=== PATIENT | female | born 1980 | race Caucasian/White ===

== ENCOUNTER → 2024-03-13 | Outpatient (CLI) | payer OTHER, SELFPAY ==
[2024-03-13 12:17] LABS: Absolute Lymphocyte Count 1.47 X10^3/uL (0.83-4.51); Absolute Neutrophil Count 8.6 X10^3/uL (2.0-7.7); Basophil# 0.04 X10^3/uL; Basophil% 0.4 % (0-1); Eosinophil# 0.13 X10^3/uL; Eosinophils% 1.2 % (0-5); Hematocrit 37.2 % (37-47); Hemoglobin 12.1 g/dL (12.0-15.0); Lymphocyte # 1.47 X10^3/ul (0.83-4.51); Lymphocyte % 13.4 % (19-41); Mean Corp Hgb Conc 32.5 g/dL (32-36); Mean Corpuscular Hgb 28.6 pg (27.0-32.0); Mean Corpuscular Volume 87.9 fL (81-99); Mean Platelet Vol. 10.8 fl (6.2-12.0); Monocyte# 0.66 X10^3/uL; NRBC Flagged by Analyzer 0 % (0-5); Neutrophil % 78.5 % (47-70); Platelet Count 338 K/mm3 (150-450); RBC Distribution Width SD 41.3 fl (35.1-43.9); Red Blood Count 4.23 M/mm3 (4.2-5.4)
[2024-03-13 13:21] LABS: ALB/GLOB Ratio 0.8 RATIO (0.9-2.4); AST(SGOT) 12 U/L (15-37); Alanine Aminotransfer ALT/SGPT 20 U/L (13-56); Albumin, Serum 3.1 g/dL (3.2-5.0); Alkaline Phosphatase 58 U/L (45-117); Anion Gap 7 (5-15); BUN 13 mg/dL (7-18); BUN/Creat Ratio 18.7 RATIO (10-20); Calcium,Total 9.3 mg/dL (8.5-10.1); Chloride 106 mmol/L (98-107); Creatinine, Serum 0.69 mg/dL (0.55-1.02); EST Glomerular Filtration Rate 98 mL/min (>60); Est Glom Filt Rate - Afr Amer 119 mL/min (>60); Globulin 4.1 g/dL (2.2-4.2); Glucose 91 mg/dL (74-106); Potassium 4.6 mmol/L (3.5-5.1); Protein, Total 7.2 g/dL (6.4-8.2); Sodium Level 137 mmol/L (136-145)
[2024-03-13 18:39] LABS: Vitamin D,25 Hydroxy 13.8 ng/mL
== END | disposition home or self-care (01) ==
LOC: MFPLAB 10:04
PROVIDERS: PCP Family Medicine; Referring Provider Family Medicine; Visit Provider Family Medicine
DX: R53.83 Other fatigue (principal)
CPT/HCPCS: 36415; 80053; 82306; 84443; 85025

== ENCOUNTER → 2024-06-23 | Outpatient (CLI) | payer OTHER, SELFPAY ==
--- NOTE | 2024-06-23 13:30 | RAD_ITS ---
PROCEDURE: KNEE 4 OR MORE VIEWS 06/23/2024 REASON FOR EXAM: LEFT KNEE INJURY TECHNIQUE: 4 view(s) of the left knee COMPARISON: None available FINDINGS: No fracture or dislocation. Moderate medial compartment joint space narrowing. Mild degenerative changes with mild spurring, osteophyte formation. Small joint effusion. RAD/Knee 4 or More Views IMPRESSION: No fracture or dislocation. Moderate medial compartment joint space narrowing. If further clinical concern for possible internal joint derangement, may consider follow-up with MRI as warranted. Small joint effusion. Mild osteoarthrosis. Reading Location: [id number]
== END | disposition home or self-care (01) ==
PROVIDERS: PCP Family Medicine; Referring Provider Family Medicine; Visit Provider Family Medicine
DX: M25.562 Pain in left knee (principal)
CPT/HCPCS: 73564

== ENCOUNTER → 2024-08-07 | Outpatient (CLI) | payer OTHER, SELFPAY ==
--- NOTE | 2024-08-07 12:11 | MRI_ITS ---
PROCEDURE: LOWER EXT JOINT ONLY (ROUTINE) 08/07/2024 REASON FOR EXAM: PAIN TECHNIQUE: MRI of the left knee. T1, T2, PD, multiplanar and multisequence images were obtained without IV contrast administration. COMPARISON: COMPARISON : June 23, 2024 x-ray FINDINGS: Bone Marrow: There is mild subcortical edema in the medial femoral condyle and medial tibial plateau secondary to osteoarthritis, with prominent marginal osteophytes. There is severe chondromalacia in the medial compartment. There is moderate chondromalacia at the patellofemoral articulation. There is 25% lateral patellar subluxation. Collateral ligaments: There is edema and attenuation throughout the medial collateral ligament with thickening of the upper portion, without tear. The lateral collateral ligament complex appears intact. Cruciate ligaments: The anterior and posterior cruciate ligaments appear intact. Extensor mechanism: The distal quadriceps and patellar tendons are intact. Meniscus: The lateral meniscus appears intact. There is a complex tear of the posterior horn and body of the medial meniscus with a horizontal component in the posterior horn which extends to the tibial surface, with extrusion of the body. Soft Tissues: There is a 5.8 by 2.8 by 2.0 cm Harper's cyst. There is a moderate joint effusion. MRI/Lower Ext Joint Only (Routine) IMPRESSION: There is mild subcortical edema in the medial femoral condyle and medial tibial plateau secondary to osteoarthritis, with prominent marginal osteophytes. There is severe chondromalacia in the medial compartment. There is moderate chondromalacia at the patellofemoral articulation. There is 25% lateral patellar subluxation.There is edema and attenuation throug hout the medial collateral ligament with thickening of the upper portion, without tear. There is a complex tear of the posterior horn and body of the medial meniscus w ith a horizontal component in the posterior horn which extends to the tibial surface, with extrusion of the body. There is a 5.8 by 2.8 by 2.0 cm Harper's cyst. There is a moderate joint effusion. Reading [facility]
== END | disposition home or self-care (01) ==
LOC: MRI 15:16
PROVIDERS: PCP Family Medicine; Referring Provider Orthopaedic Surgery; Visit Provider Orthopaedic Surgery
DX: M25.562 Pain in left knee (principal); M17.12 Unilateral primary osteoarthritis, left knee
CPT/HCPCS: 73721

== ENCOUNTER 2024-10-03 05:37 | Day surgery (SDC) | payer OTHER, SELFPAY ==
[2024-10-03] VITALS (9 sets, daily range): BP systolic 124–150; BP diastolic 86–96; PULSE 67–85; RESP 16–18; TEMP 36–36.4; O2SAT 98–100; BMI 40.4
[2024-10-03 06:27] LABS: Internal QC Validated? YES +Cl - CLEAR BKGD; Pregnancy, Urine Negative Negative; Record Kit Lot#,Urine Preg 0000947241
[2024-10-03] MEDS: Lactated Ringers 1,000 ML 15 ML IV (06:38)
--- NOTE | 2024-10-03 07:05 | PCM.PRE.AN2 ---
ASA Classification* ASA Classification ASA Classification: 3 Assessment & Plan Anesthesia* Anesthesia Assessment Anesthesia Assessment: Discussed sedation and/or anesthesia options, risks, benefits, and alternatives with patient/parents/legal guardian/POA. Questions invited. The patient/parents/legal guardian/POA seems to understand and agrees to proceed with anesthesia plan. Reviewed the physical assessment, medical history, allergy history and patient home medications list prior to surgery/procedure/anesthetic and documented any changes. Performed airway and anesthesia risk assessments. Anesthesia Type Anesthesia Type: General History Source History Obtained from:: Patient and Chart Anesthesia Focused Assessment* Temperature: 97.1 F Pulse Rate: 72 Blood Pressure: 148/94 Respiratory Rate: 16 Pulse Ox: 100 Oxygen Delivery Method: Room Air Airway Assessment Mouth opens: >3 cm Mallampati Score: I Teeth Condition: Caps/Crowns (Patient has a crown left upper molar. It is tight.) Neck Range of motion (ROM): Full ROM Labs Anesthesia Preop lab: CBC WBC 11.0 K/mm3 (4.4-11.0) 03/13/24 10:05 03/13/24 RBC 4.23 M/mm3 (4.2-5.4) 03/13/24 10:05 03/13/24 Hgb 12.1 g/dL (12.0-15.0) 03/13/24 10:05 03/13/24 Hct 37.2 % (37-47) 03/13/24 10:05 03/13/24 Plt Count 338 K/mm3 (150-450) 03/13/24 10:05 03/13/24 CHEMISTRY Potassium 4.6 mmol/L (3.5-5.1) 03/13/24 10:05 03/13/24 Sodium 137 mmol/L (136-145) 03/13/24 10:05 03/13/24 BUN 13 mg/dL (7-18) 03/13/24 10:05 03/13/24 Creatinine 0.69 mg/dL (0.55-1.02) 03/13/24 10:05 03/13/24 Glucose 91 mg/dL (74-106) 03/13/24 10:05 03/13/24 TSH 3.680 uIU/mL (0.358-3.740) 03/13/24 10:05 03/13/24 COAG Urine Test Negative Negative 10/03/24 06:13 10/03/24 Pre-Assessment Diagnosis/Proposed Procedure Planned Operative Procedure(s): LEFT KNEE ARTHROSCOPY, PARTIAL MENISCECTOMY Anesthesia History 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 When Was Last Pacemaker Check QUESTION #4 FULL TEXT: You/Your Family Experience fever (hyperthermia) with Anesthesia Last Oral Intake Last Oral intake: Last Oral Intake NPO since 21:00 10/03/24 06:21 Meds taken in AM with sips of water? Meds patient instructed to take am of surgery PONV PONV - underground mining section foreman: PONV - underground mining section foreman Female Yes 09/27/24 13:57 HX of Motion Sickness No 09/27/24 13:57 HX of N/V After Surgery No 09/27/24 13:57 Non-Smoker Yes 09/27/24 13:57 Duration of Surgery greater Yes 09/27/24 13:57 than 60 minutes Number of Risk Factors 3 09/27/24 13:57 PONV Score Moderate Risk 09/27/24 13:57 Height & Weight Height & Weight: Anesthesia: Height & Weight Height 5 ft 9 in 10/03/24 06:21 Weight: 124.284 kg 10/03/24 06:21 Body Mass Index (BMI) 40.4 10/03/24 06:21 Respiratory Assessment Respiratory Assessment - underground mining section foreman: Respiratory Tract Infection Hx - underground mining section foreman Hx Respiratory Tract Infection No 09/27/24 13:57 STOP Sleep Apnea STOP Sleep Apnea - underground mining section foreman: STOP Sleep Apnea - underground mining section foreman Hx Hypertension No 09/27/24 13:57 Hx Sleep Apnea No 09/27/24 13:57 CPAP BIPAP Do you snore loudly (louder No 09/27/24 13:57 than talking or can be heard Do you often feel tired/ No 09/27/24 13:57 fatigued/ sleepy during daytime? Has anyone observed you stop No 09/27/24 13:57 breathing during sleep? STOP Results Negative 09/27/24 13:57 QUESTION #5 FULL TEXT : Do you snore loudly (louder than talking or can be heard through closed doors)? Tobacco Use History Tobacco Use History - underground mining section foreman: Tobacco Use History - underground mining section foreman Tobacco Use Smoking Status Former smoker 09/27/24 13:57 Hx Tobacco Use Yes: 05/2309/27/24 13:57 Years Smoking Packs Smoked per Day Smoking Cessation Date was Yes - quit smoking within 15 09/27/24 13:57 within the last 15 years years Hx Smoking Cessation Date Hx Smoking Cessation Counseling Hematologic Medial History Hematologic Hx - underground mining section foreman: Hematologic Medical Hx - rn documentation specialist Hx of Blood Transfusion No 09/27/24 13:57 Hx of Transfusion in last 3 No 09/27/24 13:57 Months Date of Last Transfusion (if within last 3 months) Ever experience any problems No 09/27/24 13:57 with transfusion(s)? Specify any problems Hx of Preganancy in last 3 No 09/27/24 13:57 Months Nurse Filling Out Transfusion [email or web address] 09/27/24 13:57 & Questions: Date: 09/27/24 09/27/24 13:57 Time: 14:00 09/27/24 13:57 Patient unable to answer at this time (ie. confused, unrespo /Reproduction History /Reproductive History - underground mining section foreman: /Reproductive Hx- underground mining section foreman Hx Now Gestational Age (in weeks): EDC: Hx Hx Para Hx Section SAB Active Medications Active Medications: Current Medications Generic Name Dose Route Start Last Admin Trade Name Freq PRN Reason Stop Dose Admin Cefazolin Sodium 3 gm/ Sodium 115 mls @ 200 mls/hr 10/03/24 07:30 Chloride IV 10/03/24 08:04 INTRAOP ONE Lactated Ringer's 1,000 mls @ 15 mls/hr 10/03/24 06:00 10/03/24 06:38 IV 15 mls/hr .Q48H HUSSEIN Administration PFSH Medical History Depression Anxiety Wears glasses Marijuana use Former smoker Home Medications ?Medication ?Instructions ?Recorded ?Last Taken ?Type bupropion HCl 300 mg 24 hr tablet, 300 mg PO QDAY 06/30/24 10/01/24 History extended release fluoxetine 10 mg capsule 20 mg PO DAILY 06/30/24 10/01/24 History norgestimate-ethinyl estradiol 1 tab PO QHS 06/30/24 10/02/24 History 0.18mg/0.215mg/0.25mg-0.035mg(28)tablet (Tri-Ceci) phentermine 37.5 mg tablet 37.5 mg PO QDAY 06/30/24 10/01/24 History (Adipex-P) topiramate 25 mg tablet 25 mg PO BID 08/09/24 10/01/24 History fluoxetine 40 mg capsule 40 mg PO DAILY 09/27/24 10/01/24 History Allergy/AdvReac Type Severity Reaction Status Date / Time No Known Allergies Allergy Verified 10/03/24 06:19 Surgical History (Updated 10/03/24 @ 07:[address] Kelvin Merritt MD) delivery delivered History of wisdom tooth extraction Social History Smoking Status: Former smoker alcohol intake: current alcohol intake frequency: a few times a week Review of Systems (Anesthesia) ROS Narrative System reviewed and no additional complaints, except as documented.
--- NOTE | 2024-10-03 07:07 | PCM.HP.BLA ---
History and Physical Date of Admission: 10/03/24 [facility] [address] [place] [address] OFFICE VISIT Date of Service: 08/09/24 MR#: [id number] Acct: [id number] Name: JAN MONTENEGRO Rep #: [id number] : 1980 Provider: Dr. Star Lee DO Age/Sex: 44/F Location: [email or web address] Status: Signed Intake Vital Signs 07/01/2507:39 08/08/2509:18 08/10/2507:33 Height 5 ft 9 in 5 ft 9 in 5 ft 9 in Weight: 279 lb 4 oz 272 lb BMI 41.2 40.1 Intake Visit Reasons: LEFT KNEE Chief Complaint: MRI review Accompanied by: Self Is patient in pain?: Yes Pain scale (1-10): 5 Allergies No Known Allergies Allergy (Verified 08/09/24 08:35) Medications ?Medication ?Instructions ?Recorded ?Confirmed ?Type bupropion HCl 300 mg 24 hr tablet, 300 mg PO QDAY 06/30/24 08/09/24 History extended release fluoxetine 10 mg capsule 20 mg PO 06/30/24 08/09/24 History norgestimate-ethinyl estradiol 1 tab PO QDAY 06/30/24 08/09/24 History 0.18 mg/0.215mg/0.25mg-35 mcg(28)tablet (Tri-Ceci) phentermine 37.5 mg tablet 37.5 mg PO QDAY 06/30/24 08/09/24 History (Adipex-P) topiramate 25 mg tablet 25 mg PO BID 08/09/24 08/09/24 History Have you fallen in the past year?: No PFSH Surgical History (Updated 06/30/24 @ 08:42 by Jessica Sher) History of wisdom tooth extraction Social History (Updated 06/30/24 @ 08:42 by Jessica Sher) Smoking Status: Former smoker alcohol intake: current alcohol intake frequency: a few times a week HPI LEFT KNEE Details: This documentation accurately reflects the service provided and the decisions made by me, Dr. Star Lee, 08/09/24 0733. Part of today?s visit was documented by Riddhi Haskins MA, acting as scribe. JAN MONTENEGRO is a 44 year old F here today for MRI of let knee review. Patient would like to go over the MRI to see what the next step is. Patient states the knee is pretty sore today and it continues to pop/click daily that is painful to her. She describes the pain over the medial aspect of the knee. 06/30/2024 visit:medical history significant for obesity BMI 41.2 and depression here today for left knee pain that she has been having for over a year that started after she was moving; no injury. Her pain is anterior and medial. She denies any pervious injury or surgery to the knee. She does have popping,clicking, catching and snapping in the knee which is painful. pain with stairs. She does wear a wrap on her knee that help her feel more stable. If she is not wearing the wrap she feels that her knee is going to give out on the medial side. Patient did have recent xrays on 06/23/24. She did PT in October 2023 for 3 months which did help with her knee some and she continues to do the exercises. She take Ibuprofen and Tylenol for the pain. She has had a steroid injection in each knee in September/October of last year with a different orthopedic doctor in [place] and she states that it made her pain worse. She take 5 Ibuprofen at a time multiple x\day. Plan:Patient is here today for left knee pain. I did review xrays today with patient that she had done on 06/23/24. I advised patient that she does have mild to moderate arthritis in the knee more in the medial compartment and some patellofemoral as well. With her painful mechanical symptoms and failing conservative treatment including physical therapy injections and NSAIDs I did discuss with her the possibility of getting an MRI to evaluate for a medial meniscus tear. Explained to her that the mechanical symptoms could be coming from her arthritis as well. I counseled her that she cannot take as many ibuprofens that she is taking as this will put her into renal failure. Her treatment options would be do nothing , continue physical therapy appropriate NSAID usage intra-articular steroid injection viscosupplementation or MRI to see if arthroscopy could be beneficial. I did discuss with patient that weight loss would help her as well but only for her pain but for her prognosis. She would like us to send her a referral for the why weight program. We also discussed glucosamine and conjoint and for cartilage pain. Follow up after MRI or sooner if pain, swelling, numbness or associated symptoms, or concerns develop. All questions answered. Patient in agreement of plan. Ortho Exam General General: Yes no acute distress and Yes well groomed Neurologic: Yes alert and Yes oriented x3 Psychologic: Yes reasonable and appropriate Right Knee Patella Translation: 1 Left Knee Skin/Wound: Yes CDI, No ecchymosis, No erythema and No swelling Homans Sign: No Knee ROM: Yes ROM-Extension -20 to 0 and Yes ROM-Flexion 0-140 (92) Examination: Yes med jt line tenderness, Yes Lat jt line tenderness, No Crepitus, Yes Pain with flexion and Yes Hanny's Test Stability: NML: Anterior Drawer, NML: Get, NML: Posterior Drawer, NML: Valgus 0, NML: Valgus 30, NML: Varus 0 and NML: Varus 30 Patella Translation: 1 Patella Grind: No KNEE: very large soft tissue envelop around the knee from obesity there is no signs of cellulitis or abscess or joint effusion no patellar instability medial sided pain with varus stress severe pain with attempted anibal unable to complete Head: Normocephalic Atraumatic Chest: symmetrical rise, non-labored breathing, no audible wheeze Abdomen: no guarding, non-rigid Supplemental Info 08/07/2024 MRI left knee:There is mild subcortical edema in the medial femoral condyle and medial tibial plateau secondary to osteoarthritis, with prominent marginal osteophytes. There is severe chondromalacia in the medial compartment. There is moderate chondromalacia at the patellofemoral articulation. There is 25% lateral patellar subluxation.There is edema and attenuation throughout the medial collateral ligament with thickening of the upper portion, without tear. There is a complex tear of the posterior horn and body of the medial meniscus with a horizontal component in the posterior horn which extends to the tibial surface, with extrusion of the body. There is a 5.8 by 2.8 by 2.0 cm Harper's cyst. There is a moderate joint effusion. 06/23/2024 x-ray left knee: Read as moderate medial joint space narrowing I would consider more mild approaching moderate with degenerative changes also noted of the patellofemoral joint Coding Level of Care Code Off vis,est,level 4 Diagnoses Mechanical pain of left knee M25.562 Morbid obesity due to excess calories E66.01 Primary osteoarthritis of left knee M17.12 Osteoarthritis type: primary Tear of medial meniscus of left knee S83.242A Assessment and Plan Assessment and Plan (1) Mechanical pain of left knee: Status: Acute (2) Morbid obesity due to excess calories: Status: Acute (3) Left knee DJD: Status: Acute Qualifiers: Osteoarthritis type: primary Qualified Code(s): M17.12 - Unilateral primary osteoarthritis, left knee (4) Tear of medial meniscus of left knee: Status: Acute Plan Explained that she does have a complex chronic meniscus tear in the medial compartment of the knee in addition to significant knee arthrosis. Her options would be: do nothing, knee arthroscopy partial medial menisectomy , a TKA but she is pretty young and her BMI is a little too high, try steroid injections again, viscosupplementation injections. Explained that the knee arthroscopy will clean out the knee and smooth out loose cartilage/meniscus that is in the knee but she might need a knee replacement on down the road regardless. Spoke to patient about the surgery and the pros, cons, risks and benefits. I explained to her that arthroscopic surgery on her arthritic knee will cause more inflammation for a longer period of time and there is no guarantee that her pain will be better. She would like to proceed with the surgical procedure but she would need to wait until after the end of August. Shooting for surgery for October 03. She should avoid any Ibuprofen, Advil or Turmeric 7 days prior to surgery. We discussed after arthroscopic intervention if she is still sore and inflamed 6 weeks after we will perform a steroid injection if still having significant pain after this we could consider lubricant and get injections again. Follow up after surgery for post-op appointment or sooner if pain, swelling, numbness or associated symptoms, or concerns develop. All questions answered. Patient in agreement of plan. I have examined the patient and the H&P has been reviewed. There are no clinical changes since date of exam.
[2024-10-03] MEDS: Bupiv/Epi 0.25% 30 ML Vial (07:40)
[2024-10-03] MEDS: Epinephrine (1 mg/ml) 1 MG/ML VIAL (07:43)
--- NOTE | 2024-10-03 08:16 | PCM.OPRPT ---
Operative Report (Standard) Operative Information Date of Procedure: 10/03/24 Pre-Operative Diagnosis: Left knee DJD medial meniscus tear Post-Operative Diagnosis: Left knee DJD medial meniscus tear ACL laxity Surgery/Procedure Performed: Left knee arthroscopy partial medial meniscectomy steel estimator: Yes Environmental Protection Forester: Robe Brewster Tasks completed by interior design assistant: Opening & closing and Other (Leg positioning) Type of Anesthesia: General RN Documented Start/Stop Times: Operation Date: 10/03/24 07:30 Case Time Into Pre-Op 10/03/24 05:58 Anesthesia Start 10/03/24 07:22 Into Room 10/03/24 07:22 Procedure Start 10/03/24 07:40 Procedure End 10/03/24 08:12 Procedure Start Time: 07:40 Procedure Stop Time: 08:12 Select all DRAINS/GRAFTS/IMPLANTS that apply: None Estimated Blood Loss: 5 Specimen collected: No Description of surgery: Preop diagnosis: Left knee DJD medial meniscus tear Postoperative diagnosis: Left knee diffuse grade III chondromalacia medial femoral condyle with areas of grade 4 grade III chondromalacia of the trochlea and patella complex tear body and horn medial meniscus, ACL laxity Procedure: Left knee arthroscopic partial medial meniscectomy Anesthesia: General Estimated blood loss: 5 mL Tourniquet time: 25 minutes 300 mmHg Complications: none Biodies[employer] Plant Operations Engineer Robe Brewster. My physician residential real estate assistant was a vital part of this case. He was important in appropriate retraction during the case, and protection of soft tissues during procedure. His intimate knowledge of the case and my steps aided in safe and expedient completion of the procedure as well as appropriate position of the extremity during the case. He was also vital in assisting with closure under my direct supervision. Indication for procedure: 44-year-old morbidly obese female who has had ongoing mechanical symptoms and has known arthritis did have MRI demonstrating a complex large tear of her medial meniscus we discussed that due to her age BMI and arthrosis she may continue to have knee pain following knee arthroscopy however the patient did wish to proceed with an elective arthroscopic surgery to attempt to alleviate the symptoms. Risk benefits and alternatives of the procedure were reviewed including risk of bleeding infection nerve artery tissue damage need for further surgery continued pain and expected postoperative course. Procedure: The patient was met in the preoperative holding area. The operative extremity was identified by both patient and physician and family and marked. Patient was brought back to the operating room on a wheeled cart and transferred to the operating table in the supine position. Anesthesia was started. A well-padded tourniquet was placed on the operative extremity. A lower extremity leg ambrocio was secured to the operative extremity. The contralateral extremity was well-padded and the end of the bed was flexed to 90 degrees. The patient was prepped and draped in the usual sterile fashion. A timeout was called to ensure the proper patient, procedure, and extremity were being contemplated. 0.5% Marcaine with epinephrine was injected into the planned incisional areas under the skin only. An Esmarch was used to exsanguinate the extremity and the tourniquet was inflated. An 11 blade scalpel was used to make a stab incision in the anterior lateral portal. The arthroscope was inserted into the intercondylar notch and inflow and outflow tubes were attached. Arthroscopic visualization began. The medial compartment was entered. An 18-gauge spinal needle was used to establish the placement for anterior medial portal. An 11 blade scalpel was used to make a stab incision. Blunt probe was inserted followed by a meniscal probe. There was a large complex tear of the body and horn of the medial meniscus with use of arthroscopic biting instruments and a shaver partial medial meniscectomy was performed there is diffuse grade 3 cartilage wear of the medial femoral condyle with areas of grade 4. The ACL was found to be intact but lacks. The lateral compartment was entered no significant cartilage or meniscal pathology The arthroscope was switched to the medial portal to complete the procedure. The medial and lateral gutters were inspected and were free of loose bodies. The patellofemoral joint was inspected demonstrated diffuse grade 3 cartilage wear of the trochlea and patella. There was good patellar tracking. The knee was thoroughly irrigated and drained. An intra-articular injection with 5 cc 0.5% Marcaine plain and 40 mg of Depo-Medrol was injected intra-articularly. The arthroscope was removed the portals were closed with 3-0 nylon arthroscopic stitches. Followed by Xeroform 4 x 4's ABDs web roll and an Pete wrap. The tourniquet was let down and the drapes were removed. All counts were correct. The patient was brought back to the PACU in stable condition. Surgical Findings: DJD and meniscus tear Complications Complications: No
--- NOTE | 2024-10-03 08:24 | DCINST_ITS ---
Discharge Instructions Diet Discharge Diet: No restrictions Activity Weight Bearing Status: Full weight bearing Keep extremity elevated above heart level: Operative Extremity Dressing / Incision Call your doctor if you observe: Shortness of breath and Chest pain Additional Dressing/Incision Instructions:: Ice and elevate next 72 hours .keep dressing on clean and dry for 48 hours then may remove begin showering daily but do not submerge in tub or pool. After shower may apply Band-Aids . Encourage knee range of motion weightbearing as tolerated, use crutches until confident in knee then may discontinue. No strenuous activity. When not ambulating keep iced and elevated next 72 hours. Do not mix pain medication with recreational drugs or alcohol only take as prescribed can be addictive and abusive, call with any questions or concerns. Follow Up Care Please Follow Up With: Star Lee DO When: 2 weeks Test Results: Test results from this visit will be discussed in further detail at your follow- up appointment, if applicable. Discharge Plan Admission Primary Reason for Your Visit: Left knee arthroscopy Attending Provider: Star Lee Primary Care Provider: Noemi Tovar Instructions Print Language: Russian Discharge Orders/Prescriptions Prescriptions: New acetaminophen 500 mg tablet 1,000 mg PO Q6H Qty: 60 0RF oxycodone 5 mg tablet 5 - 10 mg PO Q4H PRN (Reason: pain) 7 Days Qty: 30 0RF etodolac 500 mg tablet 500 mg PO BID Qty: 30 0RF Rx Instructions: Begin morning after surgery Continued norgestimate-ethinyl estradiol [Tri-Ceci] 0.18/0.215/0.25 mg-35 mcg (28) tablet 1 tab PO QHS bupropion HCl 300 mg tablet extended release 24 hr 300 mg PO QDAY phentermine [Adipex-P] 37.5 mg tablet 37.5 mg PO QDAY Rx Instructions: must administer 30 minutes before or 1-2 hours after breakfast topiramate 25 mg tablet 25 mg PO BID fluoxetine 10 mg capsule 20 mg PO DAILY fluoxetine 40 mg capsule 40 mg PO DAILY Referrals / Follow Up: Noemi Tovar MD [Primary Care Provider] - Disposition Disposition (needs filled in before D/C Order can be placed): Home, Self Care
--- NOTE | 2024-10-03 08:25 | PCM.POST.ANE ---
Anesthesia: Postop Eval I Current Vital Signs Temperature: 96.8 F Pulse Rate: 78 Blood Pressure: 150/90 Respiratory Rate: 18 Pulse Ox: 98 Oxygen Delivery Method: Room Air Assessment Airway patent: Yes Spontaneous unlabored respirations: Yes Mental status: Awake nausea: No Vomiting: No Anesthesia Complication: No Fluid Hydration Crystalloid volume administer (ml): 500 Total IV fluid infused: 500 Progress Note Anesthesia document: Postop Eval 1 completed: Yes
[2024-10-03] MEDS: HYDROcodone Bitartrate/Apap 5/325 Tablet PO (09:25)
[2024-10-03] MEDS: Cefazolin 2 GM in 0.9% Normal Saline (100mL Bag) 100 ML IV (10:02)
--- NOTE | 2024-10-03 23:06 | POSTOPAN2_ITS ---
Anesthesia Postop Eval I Sum Postop Eval Completion status Anesthesia document: Postop Eval 1 completed: Yes Anesthesia Postop Eval I Summary Anesthesia Postop Eval I Summary: Anesthesia Postop Eval I: Assessment Summary Airway patent Yes 10/03/24 08:26 CENTRAL STATION [email or web address].[email or web address] Spontaneous unlabored Yes 10/03/24 08:26 CENTRAL STATION OPERATOR.[email or web address] respirations Mental status Awake 10/03/24 08:26 CENTRAL STATION OPERATOR.[email or web address] nausea No 10/03/24 08:26 CENTRAL STATION OPERATOR.[email or web address] Vomiting No 10/03/24 08:26 CENTRAL STATION OPERATOR.[email or web address] Anesthesia Postop Eval I: Fluid Summary Crystalloid volume administer 500 10/03/24 08:26 CENTRAL STATION OPERATOR.[email or web address] (ml) Colloids volume administered ( ml) Blood Product volume administered (ml) Total IV fluid infused 500 10/03/24 08:26 CENTRAL STATION OPERATOR.CARLTON Anesthesia Postop Eval I: Summary Notes Anesthesia Complication No 10/03/24 08:26 CENTRAL STATION OPERATOR.[email or web address] Anesthesia Complication Comment: Post-operative progress note Anesthesia: Postop Eval II Evaluation Mental status: Awake and Calm Pain Level: 1 nausea: No Vomiting: No Complications Anesthesia Complication: No
--- NOTE | 2024-10-03 23:06 | PCM.POSTANE2 ---
Anesthesia Postop Eval I Sum Postop Eval Completion status Anesthesia document: Postop Eval 1 completed: Yes Anesthesia Postop Eval I Summary Anesthesia Postop Eval I Summary: Anesthesia Postop Eval I: Assessment Summary Airway patent Yes 10/03/24 08:26 [email or web address] Spontaneous unlabored Yes 10/03/24 08:26 [email or web address].[email or web address] respirations Mental status Awake 10/03/24 08:26 [email or web address] nausea No 10/03/24 08:26 [email or web address].[email or web address] Vomiting No 10/03/24 08:26 [email or web address].CARLTON Anesthesia Postop Eval I: Fluid Summary Crystalloid volume administer 500 10/03/24 08:26 [email or web address] (ml) Colloids volume administered ( ml) Blood Product volume administered (ml) Total IV fluid infused 500 10/03/24 08:26 [email or web address].CARLTON Anesthesia Postop Eval I: Summary Notes Anesthesia Complication No 10/03/24 08:26 [email or web address].[email or web address] Anesthesia Complication Comment: Post-operative progress note Anesthesia: Postop Eval II Evaluation Mental status: Awake and Calm Pain Level: 1 nausea: No Vomiting: No Complications Anesthesia Complication: No
== END 2024-10-03 10:50 | disposition home or self-care (01) ==
LOC: SDC 05:38 → AC 05:39
PROVIDERS: Anesthesiology; PCP Family Medicine; Referring Provider Orthopaedic Surgery; Visit Provider Orthopaedic Surgery
PROC: (CPT 29870; principal; 2024-10-03 07:10)
DX: M17.12 Unilateral primary osteoarthritis, left knee (principal); E66.01 Morbid (severe) obesity due to excess calories; Z68.41 Body mass index [BMI] 40.0-44.9, adult; M94.262 Chondromalacia, left knee; M23.612 Other spontaneous disruption of anterior cruciate ligament of left knee; S83.232A Complex tear of medial meniscus, current injury, left knee, initial encounter; X58.XXXA Exposure to other specified factors, initial encounter; Z87.891 Personal history of nicotine dependence
CPT/HCPCS: 29881; 01400; 81025; J2405

== ENCOUNTER → 2024-10-16 | Outpatient (CLI) | payer OTHER, SELFPAY ==
--- NOTE | 2024-10-16 13:58 | VDLE_ITS ---
Reason For Study Reason For Study: Pain LLE, Recent surgery RIGHT LEFT CFV is compressible, spontaneous, phasic, competent GSV is normal. and demonstrates normal augmentation. CFV is patent and compressible. Procedure Lt FV, Lt PopV, Lt T/P Trunk, Lt GastrocV, Lt PTV, This is a venous duplex using B-mode, color flow and and Lt PeroV are DILATED and NON COMPRESSIBLE spectral Doppler. consistent with acute DVT Exam performed in department. Lt SSV is DILATED and NON COMPRESSIBLE consistent A preliminary report was called and/or faxed to with acute SVT. Rosa. VL/Venous Duplex US, Unilateral Interpretation Summary Acute deep vein thrombosis noted in the left femoral vein, popliteal vein, tibi operoneal trunk vein, gastrocnemius vein, posterior tibial vein, peroneal vein. Acute superficial vein thrombosis noted in the left small saphenous vein. Ordering Physician: Star Lee Referring Physician: Noemi Tovar Performed By: Seda Baldwin RDCS, RVT
== END | disposition home or self-care (01) ==
LOC: CVS 13:55
PROVIDERS: PCP Family Medicine; Referring Provider Orthopaedic Surgery; Visit Provider Orthopaedic Surgery
DX: M79.662 Pain in left lower leg (principal); I70.92 Chronic total occlusion of artery of the extremities
CPT/HCPCS: 93971

== ENCOUNTER 2024-10-24 21:49 | Emergency (ER) | payer OTHER, SELFPAY ==
[2024-10-24 21:52] VITALS: BP 139/85; PULSE 73; RESP 18; TEMP 36.4; O2SAT 100; BMI 42.5
--- NOTE | 2024-10-24 22:18 | ED.VIS.DYS ---
HPI History of Present Illness Chief Complaint: Numb/Ting Informant: patient and spouse/S.O. Narrative Narrative: 44-year-old female presenting with shortness of breath and numbness to the right arm. She states the symptoms started today separately. She started noticing tingling in her right forearm in her hand all fingers, a little worse in her right upper arm, more at the ulnar aspect than the radial and more in the fingers 4-5 than the others, earlier today. She states tonight she just finished eating dinner she was resting she suddenly started feeling short of breath and feeling her heart racing, the significant other states she looked sweaty. The patient states she felt lightheaded but no near-syncope or syncope. She denies any chest pain. She has had a cough that has been productive of some clear sputum for the last several days without fevers, chills, or dyspnea other than this episode. She states since the dyspnea episode tonight, she has had other episodes of feeling a little short of breath and does not necessarily feel like that right now, mostly felt like it was hard to take a deep breath. She called nurse in the office and they referred her here to the ER. She recently had left knee surgery, 1 week ago she was seen in follow-up and was having calf and popliteal pain, had an ultrasound showing a DVT and started a apixaban at that time. [facility] Medical History Depression Anxiety Wears glasses Marijuana use Former smoker Home Medications ?Medication ?Instructions ?Recorded ?Last Taken ?Type bupropion HCl 300 mg 24 hr tablet, 300 mg PO QDAY 06/30/24 10/01/24 History extended release norgestimate-ethinyl estradiol 1 tab PO QHS 06/30/24 10/02/24 History 0.18mg/0.215mg/0.25mg-0.035mg(28)tablet (Tri-Ceci) phentermine 37.5 mg tablet 37.5 mg PO QDAY 06/30/24 10/01/24 History (Adipex-P) topiramate 25 mg tablet 25 mg PO BID 08/09/24 10/01/24 History acetaminophen 500 mg tablet 1,000 mg (2 x 500 mg) PO Q6H #60 10/03/24 Unknown Rx tabs oxycodone 5 mg tablet 5 - 10 mg (1 - 2 x 5 mg) PO Q4H 10/03/24 Unknown Rx PRN pain 7 days #30 tabs apixaban 5 mg tablet (Eliquis) 5 mg PO BID #190 tabs 10/16/24 Unknown Rx cyclobenzaprine 10 mg tablet 10 mg PO TID PRN muscle spasm #30 10/16/24 Unknown Rx tabs Allergy/AdvReac Type Severity Reaction Status Date / Time No Known Allergies Allergy Verified 10/24/24 21:52 Surgical History delivery delivered History of wisdom tooth extraction Social History Smoking Status: Current some day smoker tobacco type: cigarettes alcohol intake: current alcohol intake frequency: a few times a week ROS ROS ED Constitutional Constitutional ED: Denies chills or fever(s) Eyes Eyes: Denies change in vision or diplopia ENT ENT ED: Denies rhinorrhea or sore throat Cardiovascular Cardiovascular: Reports racing heartbeat; Denies chest pain, orthopnea or syncope Respiratory/Chest Respiratory/Chest: Reports dyspnea and sputum; Denies cough, hemoptysis or orthopnea Gastrointestinal Gastrointestinal: Denies abdominal pain, diarrhea, nausea or vomiting Genitourinary Genitourinary ED: Denies dysuria or hematuria Musculoskeletal Musculoskeletal: Reports other Details: Left lower leg and popliteal pain and swelling of the left lower leg ; Denies back pain or neck pain Integumentary Denies abscess or rash Neurologic Neurologic: Reports paresthesias RUE; Denies headache(s) or weakness Psychiatric Psychiatric: Denies suicidal thoughts EXAM Physical Exam Const Vital Signs: 10/24/24 21:52 10/24/24 22:35 Temperature 97.5 F L Temperature Source Temporal Pulse Rate 73 Respiratory Rate 18 Respiratory Effort Normal Non-Labored Respiratory Depth Normal Respiratory Pattern Normal Blood Pressure 139/85 H Blood Pressure Mean 103 Pulse Ox 100 Oxygen Delivery Method Room Air Room Air Positive well nourished and well developed General Appearance ED: well developed and NAD HEENT Reports moist mucous membranes normocephalic and atraumatic Eyes PERRL and EOMs intact bilaterally Neck full ROM, supple, no meningeal signs and no JVD Resp normal respiratory effort and clear to auscultation bilaterally Cardio regular rate, regular rhythm and no murmurs Rate: Negative for tachycardic GI non-tender and non-distended Auscultation: normoactive bowel sounds Palpation: soft Back/Spine no CVA tenderness General Back: other FROM Extremity normal to inspection Extremity Narrative: Positive Tinel's at the ulnar tunnel medial elbow right upper extremity. Negative Tinel's at the median nerve tunnel at the wrist. General Extremety ED: Yes edema; Negative for pulses abnormal or tenderness General Extremity: edema left lower extremity mild; Negative for pulses abnormal Neuro oriented x3, CN's II-XII intact bilaterally and no sensory deficits noted Neuro Narrative: No gross sensory deficits but subjective tingling throughout the right upper extremity including hand and all fingers. No weakness of any muscle group. Sensorium / Orientation: awake and alert Motor Exam: strength 5/5 throughout Psych mental status grossly normal Skin no rashes or lesions noted and no wounds MDM MDM MDM Narrative Medical decision making narrative: Patient is well-appearing has normal vital signs and pulse ox 100% on room air. Certainly with a recent DVT, pulmonary embolus enters the differential, but I think that is less likely causing her acute symptoms. As I discussed with her if she has a PE at this time, we do not know if it would have occurred a week ago or just now, she is already on the treatment, and I do not think that she has failed outpatient therapy. For this reason I do not think she needs to be evaluated for PE, and she and significant other are in agreement that makes sense. I do think is reasonable to assess for pneumonia, COVID since she was around someone with COVID recently, metabolic derangement or hyperglycemia, and atypical angina symptoms which would be less likely given this patient's age and risk. 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 Nursing went to draw blood, radiology came to obtain x-ray, and respiratory came to obtain an EKG. Patient refused all of this. She wanted to leave AGAINST MEDICAL ADVICE because after all of this I am just going to end up taking the Eliquis that I already am taking. She was advised that her symptoms given that they have been episodic could also be indicative of dysrhythmias and an EKG and watching her on the monitor is indicated since this is all acute. She understands and wants to leave anyway, believes she has a capacity to make that decision, her significant other was present during all of this conversation with me and staff. Discharge Plan Triage Chief Complaint: Numb/Ting Other Complaint: Shortness of Breath ED Provider: Fabian Ortiz Dx/Rx/DC Orders Clinical Impression: Paresthesia of right upper extremity, Acute dyspnea, Acute cough, Anticoagulated on apixaban Prescriptions: No Action norgestimate-ethinyl estradiol [Tri-Ceci] 0.18/0.215/0.25 mg-35 mcg (28) tablet 1 tab PO QHS bupropion HCl 300 mg tablet extended release 24 hr 300 mg PO QDAY phentermine [Adipex-P] 37.5 mg tablet 37.5 mg PO QDAY Rx Instructions: must administer 30 minutes before or 1-2 hours after breakfast topiramate 25 mg tablet 25 mg PO BID acetaminophen 500 mg tablet 1,000 mg PO Q6H Qty: 60 0RF oxycodone 5 mg tablet 5 - 10 mg PO Q4H PRN (Reason: pain) 7 Days Qty: 30 0RF Eliquis 5 mg tablet 5 mg PO BID Qty: 190 0RF Rx Instructions: 2 tabs (10 mg) twice a day for 7 days then 1 tab (5 mg) twice a day thereafter cyclobenzaprine 10 mg tablet 10 mg PO TID PRN (Reason: muscle spasm) Qty: 30 0RF Primary Care Provider: Noemi Tovar Referrals: Noemi Tovar MD [Primary Care Provider] - Print Language: Burundian Disposition Disposition: Against Medical Advice Discharge Date/Time: 10/24/24 23:05
[2024-10-24 22:35] VITALS: O2SAT 100
--- NOTE | 2024-10-24 22:52 | ED.RN ---
This RN completed the patient's assessment and attempted to establish IV access and put the patient in a gown and on the monitor. However, the patient refused the gown, garment turner, IV, blood work, x-ray, and the EKG from the RT at bedside. The patient stated well the doctor said the end goal might just be continuing the eliquis and I am already on it, so I don't see why I need all of these tests. This RN educated the patient on the importance of all of these tests to rule out anything life threatening and to figure out a reason for her symptoms. After the patient verbalized understanding for the tests, she still wanted to decline the medical workup. This RN notified Dr. Ortiz, Dr. Ortiz recommended educating the patient again and Dr. Ortiz also gave additional reasoning to why the patient should stay for testing. Dr. Ortiz also included that he did not advise the patient against testing and actually talked at length with the patient about why the diagnostic tests are important and necessary for the patient's care. This RN educated the patient again with the information that Dr. Ortiz gave this RN. The patient still was not agreeable to stay and get the ordered diagnostic testing performed. This RN received the appropriate AMA paperwork for the patient. The patient was agreeable to sign the paperwork. This RN notified Dr. Ortiz of our conversation and signed the AMA paperwork, stating please explain to her again that she could stay and figure out what is causing her symptoms or she could go home AMA. This RN educated the patient on this conversation and the patient still insisted on leaving AMA.
== END 2024-10-24 23:05 | disposition left against medical advice (07) ==
LOC: ED 22:20
PROVIDERS: Emergency Provider Emergency Medicine; PCP Family Medicine; Visit Provider Emergency Medicine
DX: R20.0 Anesthesia of skin (principal); Z79.01 Long term (current) use of anticoagulants; R05.1 Acute cough; R06.00 Dyspnea, unspecified; R20.2 Paresthesia of skin; F32.A Depression, unspecified; F41.9 Anxiety disorder, unspecified; Z79.899 Other long term (current) drug therapy; F17.210 Nicotine dependence, cigarettes, uncomplicated; Z86.718 Personal history of other venous thrombosis and embolism
CPT/HCPCS: 99283

== ENCOUNTER → 2025-01-16 | Outpatient (CLI) | payer OTHER, SELFPAY ==
--- NOTE | 2025-01-16 08:03 | VDLE_ITS ---
Reason For Study Reason For Study: LLE PAIN RIGHT LEFT CFV is patent and compressible. GSV is normal. Procedure CFV is compressible, spontaneous, phasic, competent, This is a venous duplex using B-mode, color flow and and demonstrates normal augmentation. spectral Doppler. Prox through Mid FV are compressible with flow noted. Exam performed in department. Distal FV is partially compressible with some flow noted. ANAECHOIC structure noted in POP Fossa space measuring 3.33cm x 1.84cm in transverse. PopV & T/P TRUNK are partially compressible with limited flow noted. PTV & PERV are partially compressible. SSV is compressible. VL/Venous Duplex US, Unilateral Interpretation Summary Chronic deep vein thrombosis noted in the left femoral vein, popliteal vein, ti bioperoneal trunk vein, posterior tibial vein, peroneal vein. Anechoic structure noted in popliteal fossa space measuring 3.33cm x 1.84cm in transverse. Ordering Physician: Star Lee Referring Physician: Noemi Tovar Performed By: Jennifer Renteria, PIO, RVT
== END | disposition home or self-care (01) ==
LOC: CVS 07:59
PROVIDERS: PCP Family Medicine; Referring Provider Orthopaedic Surgery; Visit Provider Orthopaedic Surgery
DX: M79.662 Pain in left lower leg (principal); I74.3 Embolism and thrombosis of arteries of the lower extremities; I74.5 Embolism and thrombosis of iliac artery; I70.92 Chronic total occlusion of artery of the extremities
CPT/HCPCS: 93971